=== PATIENT | female | born 1955 | race Asian ===

== ENCOUNTER 2021-07-17 10:31 | Emergency (ER) | payer MEDICARE, OTHER ==
[~2021-07-17] VITALS: Ht 157.5 cm; Wt 59.1 kg
[2021-07-17] MEDS ORDERED: ACETAMINOPHEN 500 MG TABLET PO ONE (11:00)
[2021-07-17 11:22] LABS: INR 2.4 (0.9-1.1); PROTHROMBIN TIME 23.6 SEC (9.4-11.6)
[2021-07-17 14:30] VITALS: BP 142/87
== END 2021-07-17 14:50 | disposition home or self-care (01) ==
LOC: EMS 10:41
DX: S09.90XA Unspecified injury of head, initial encounter (principal); Z79.01 Long term (current) use of anticoagulants; W01.198A Fall on same level from slipping, tripping and stumbling with subsequent striking against other object, initial encounter; Y93.89 Activity, other specified; Y92.89 Other specified places as the place of occurrence of the external cause; Y99.0 Civilian activity done for income or pay
CPT/HCPCS: 70450; 85610; 99284